=== PATIENT | male | born 2000 | race Caucasian/White ===

== ENCOUNTER 2021-04-09 21:37 | Emergency (ER) | payer OTHER, SELFPAY ==
[2021-04-09 21:39] VITALS: BP 136/85; PULSE 104; RESP 18; TEMP 36.9; O2SAT 99
--- NOTE | 2021-04-09 21:55 | PC.NURSE ---
Addendum entered by Rachel Carreno RN 04/09/21 22:00: Pt denies actively vomiting. when asked to clarify diarrhea, pt denies liquid stool. Original Note: Pt ambulatory to ED 10 c mother, with c/o upper abd pain with assoc. nausea. sinus surgery done 04/01. no longer taking rx zofran. denies nasal drainage/discharge. reports nausea worse with liquids like soup and better with solid foods. last ate approx. 1800. speech clear. skin nwd. resps even/nonlabored. does not appear to be in any distress. in gown. call light in reach. placed on monitor.
[2021-04-09 22:05] VITALS: BP 116/75; PULSE 94; RESP 14; O2SAT 100
[2021-04-09 22:05] LABS: Basophils Percent Auto 0.6 % (0.2-1.2); Eosinophils Absolute Auto 0.2 K/mm3 (0-0.3); Eosinophils Percent Auto 2.2 % (0-4.4); Hematocrit 49.1 % (42.0-52.0); Hemoglobin 17.6 g/dL (14.0-18.0); Immature Granulocyte Absolute 0.04 K/mm3 (0.00-0.031); Immature Granulocyte Percent A 0.6 % (0-0.5); Lymphocytes Absolute Auto 2.47 K/mm3 (0.9-3.2); Lymphocytes Percent Auto 35.9 % (18.3-44.2); Mean Corpuscular HGB Conc 35.8 g/dl (32-36); Mean Corpuscular Hemoglobin 31.5 pg (26-34); Mean Corpuscular Volume 87.8 fl (80-100); Mean Platelet Volume 9.3 fl (7.4-10.4); Monocytes Absolute Auto 0.7 K/mm3 (0.1-0.6); Monocytes Percent Auto 10.2 % (2.6-8.5); Neutrophils Absolute Auto 3.5 K/mm3 (1.3-6.7); Neutrophils Percent Auto 50.5 % (45.5-73.1); Platelet Count Result 260 k/mm3 (150-375); Red Blood Count 5.59 M/mm3 (4.6-6.20); Red Cell Distribution Width 11.8 % (11.5-14.5); White Blood Count 6.9 K/mm3 (4.5-10.0)
[2021-04-09 22:19] LABS: Alanine Aminotransferase 82 U/L (4-50); Albumin Level 4.8 g/dL (3.7-5.6); Alkaline Phosphatase 82 U/L (58-237); Anion Gap 11 mmol/L (8-16); Aspartate Amino Transferase 42 U/L (17-59); Bilirubin,Total 0.7 mg/dL (0.2-1.3); Blood Urea Nitrogen 19 mg/dL (8-21); Calcium 9.4 mg/dL (8.9-10.7); Carbon Dioxide 27 mmol/L (22-30); Chloride 101 mmol/L (98-107); Estimated CRCL calculation 108 ml/min; Estimated Glomerular Filt Rate > 60; Glucose 108 mg/dL (75-110); Lipase 43 U/L (23-300); Potassium 3.7 mmol/L (3.4-5.0); Sodium 139 mmol/L (134-143)
[2021-04-09] MEDS: ONDANSETRON INJ 4 MG/2 ML VIAL IV PUSH (22:37)
[2021-04-09] MEDS: BELLADONNA ALK/PHENOB ELIX 10 ML, MAG HYDROX/ALUMINUM HYD/SIMETH 30 ML, LIDOCAINE HCL 2... PO (22:58)
--- NOTE | 2021-04-09 23:27 | ED.ABDPAIN ---
HPI - Abdominal Pain General Chief Complaint: Abdominal Pain Stated Complaint: stomach problems Time Seen by Provider: 04/09/21 21:48 History of Present Illness HPI narrative: Patient is a 20-year-old male who presents ER with epigastric pain and nausea. Referred here from urgent care after having a negative UA. Reports urine has been darker than typical. Reports recently had a sinus surgery and has been having a lot of mucus drainage that may be causing his symptoms to be worsened. No fevers or chills or sweats. No chest pain or chest pressure. Patient is nonradiating cannot be characterize other than uncomfortable. No reports of heartburn. Related Data Allergies Allergy/AdvReac Type Severity Reaction Status Date / Time hydrocodone Allergy Hives Verified 04/09/21 21:43 Review of Systems Review of Systems: All systems reviewed & are unremarkable except as noted in HPI and below Constitutional: Constitutional: Denies chills, Denies fever(s) and Denies weakness ENT: Denies nasal congestion and Denies sore throat Cardiovascular: Cardiovascular: Denies chest pain and Denies radiating jaw, neck or arm pain Gastrointestinal: Gastrointestinal: Reports abdominal pain, Denies constipation, Denies diarrhea, Reports nausea and Denies vomiting PMFSH Past Medical History Medical History (Updated 04/09/21 @ 23:32 by Shiva Piña MD) Healthy adult male Surgical History Surgical History (Updated 04/09/21 @ 23:30 by Shiva Piña MD) H/O sinus surgery Social History Social History (Updated 04/09/21 @ 23:30 by Shiva Piña MD) Smoking status: Never smoker Gender identity (if verbalized by the patient): Male Exam Narrative: Exam Narrative: GENERAL: Well-appearing, well-nourished, and in no acute distress. HEAD: Normocephalic, atraumatic. EYES: PERRL and EOMI. ENT: Mucous membranes moist. CHEST: Clear to auscultation. No respiratory distress. HEART: Regular rate and rhythm. Normal peripheral pulses. ABDOMEN: Soft, nontender, nondistended. EXTREMITIES: Normal range of motion. No edema.. NEURO: Alert and oriented x3. PSYCH: Normal mood and affect. Course Course Emergency Course: Unremarkable evaluation. Symptoms improved with Zofran and GI cocktail. Patient feels Zofran likely help more. Discharge home. Vital Signs Vital signs: Vital Signs Temperature 98.5 F 04/09/21 21:39 Pulse Rate 104 H 04/09/21 21:39 Respiratory Rate 18 04/09/21 21:39 Blood Pressure 136/85 04/09/21 21:39 Pulse Oximetry 99 04/09/21 21:39 Temperature 98.5 F 04/09/21 21:39 Pulse Rate 94 04/09/21 22:05 Respiratory Rate 14 04/09/21 22:05 Blood Pressure 116/75 04/09/21 22:05 Pulse Oximetry 100 04/09/21 22:05 MDM - Abdominal Pain Lab Data Result diagrams: 04/09/21 21:59 04/09/21 21:59 Labs: Lab Results 04/09/21 04/09/21 Range/Units 21:59 21:59 WBC 6.9 (4.5-10.0) K/mm3 RBC 5.59 (4.6-6.20) M/mm3 Hgb 17.6 (14.0-18.0) g/dL Hct 49.1 (42.0-52.0) % MCV 87.8 (80-100) fl MCH 31.5 (26-34) pg MCHC 35.8 (32-36) g/dl RDW 11.8 (11.5-14.5) % Plt Count 260 (150-375) k/mm3 MPV 9.3 (7.4-10.4) fl Immature Gran % (Auto) 0.6 H (0-0.5) % Neut % (Auto) 50.5 (45.5-73.1) % Lymph % (Auto) 35.9 (18.3-44.2) % Stafford % (Auto) 10.2 H (2.6-8.5) % Eos % (Auto) 2.2 (0-4.4) % Baso % (Auto) 0.6 (0.2-1.2) % Lymph # (Auto) 2.47 (0.9-3.2) K/mm3 Stafford # (Auto) 0.7 H (0.1-0.6) K/mm3 Eos # (Auto) 0.2 (0-0.3) K/mm3 Baso # (Auto) 0.0 (0.0-0.1) K/mm3 Abs Immat Gran (auto) 0.04 H (0.00-0.031) K/mm3 Absolute Neuts (auto) 3.5 (1.3-6.7) K/mm3 Absolute Nucleated RBC 0.0 (0.0-0.012) K/mm3 Nucleated RBC % 0.0 (0.0-0.2) % Sodium 139 (134-143) mmol/L Potassium 3.7 (3.4-5.0) mmol/L Chloride 101 (98-107) mmol/L Carbon Dioxide 27 (22-30) mmol/L Anion Gap 11 (8-16) mmol/L BUN 19
== END 2021-04-09 23:58 | disposition home or self-care (01) ==
PROVIDERS: Emergency Medicine; Emergency Provider Emergency Medicine; PCP Pediatrics
DX: R10.13 Epigastric pain (principal)
CPT/HCPCS: 36415; 80053; 83690; 85025; 96374; 99284; A9270; J2405

== ENCOUNTER 2021-09-17 20:31 | Emergency (ER) | payer OTHER, SELFPAY ==
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
[2021-09-17 20:42] VITALS: BP 153/103; PULSE 93; RESP 17; TEMP 36.6; O2SAT 100
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
[2021-09-17] MEDS: CYCLOBENZAPRINE HCL 10 MG TABLET PO (22:37)
[2021-09-17] MEDS: IBUPROFEN 600 MG TABLET PO (22:37)
[2021-09-17 23:11] VITALS: PULSE 64; RESP 16; O2SAT 99
== END 2021-09-17 23:13 | disposition home or self-care (01) ==
PROVIDERS: Emergency Provider Emergency Medicine; PCP Pediatrics
DX: S70.12XA Contusion of left thigh, initial encounter (principal); S50.312A Abrasion of left elbow, initial encounter; M25.512 Pain in left shoulder; V29.88XA Motorcycle rider (driver) (passenger) injured in other specified transport accidents, initial encounter; Y92.481 Parking lot as the place of occurrence of the external cause
CPT/HCPCS: 71046; 73030; 73080; 99284; A4565; A9270

== ENCOUNTER 2022-01-12 15:41 | Emergency (ER) | payer OTHER, SELFPAY ==
[2022-01-12 15:46] VITALS: BP 150/92; PULSE 98; RESP 16; TEMP 36.9; O2SAT 100
--- NOTE | 2022-01-12 15:49 | ED.SKABFB ---
HPI - Skin/Abscess/Foreign Bdy General Chief complaint: Skin/Abscess/Foreign Body Stated complaint: itchy right 2nd/3rd toe Time Seen by Provider: 01/12/22 15:52 Source: patient, RN notes reviewed and old records reviewed Mode of arrival: ambulatory Limitations: no limitations History of Present Illness HPI narrative: 21-year-old male presents to the [facility] with complaints of redness to the fifth toe right foot and itching of the fourth and fifth toes. Started a couple of days ago, had been using a foot spray which made it feel worse. Redness and warmth noted to the dorsal aspect of the fifth toe, very dry skin surrounding toenail. Full range of motion. Denies pain but states it is very itchy. Related Data Allergies Allergy/AdvReac Type Severity Reaction Status Date / Time hydrocodone Allergy Hives Verified 01/12/22 15:50 Review of Systems Review of Systems: All systems reviewed & are unremarkable except as noted in HPI and below Constitutional: Constitutional: Reports no additional constitutional complaints, Denies chills, Denies fever(s), Denies headache(s) and Denies weakness Eyes: Eyes: Reports no additional eye complaints and Denies change in vision ENT: Reports system reviewed and no additional complaints, except as documented, Denies dysphagia, Denies dizziness, Denies headache(s), Denies nasal congestion and Denies sore throat Cardiovascular: Cardiovascular: Reports no additional cardiovascular complaints, Denies chest pain, Denies syncope and Denies dyspnea Respiratory: Respiratory: Reports no additional respiratory complaints, Denies chest congestion, Denies cough, Denies dyspnea and Denies wheezing Gastrointestinal: Gastrointestinal: Denies dysphagia Musculoskeletal: Musculoskeletal: Reports no additional musculoskeletal complaints and Denies numbness Integumentary/Breasts: Skin/Breast: Reports as per HPI, Reports pruritus, Reports erythema and Reports rash Neurologic: Reports system reviewed and no additional complaints, except as documented, Denies dizziness, Denies syncope, Denies headache(s), Denies focal weakness, Denies numbness and Denies weakness Psychiatric: Psychiatric: Reports no additional psychiatric complaints Allergic/Immunologic: Allergic/Immunologic: Reports no additional allergic/immunologic complaints and Denies wheezing PMFSH Past Medical History Medical History (Updated 01/13/22 @ 00:00 by Caridad Deng) Healthy adult male Surgical History Surgical History H/O sinus surgery Social History Social History Smoking status: Never smoker Gender identity (if verbalized by the patient): Male Comments At the time of my signature, I reviewed and agree with the nursing past medical, surgical, social, and family history. There is no relevant family history pertinent to the patient complaint. Exam Const: General: healthy appearing, no acute distress and alert Nutritional Appearance: well nourished Orientation/consciousness: patient oriented x3 Limitations: no limitations HENMT: Head: normal to inspection Ears: external ears normal Eyes: Pupils: Equal, round and reactive pupils present Neck: Neck: normal visual inspection, no lymphadenopathy and no meningeal signs Chest: Chest palpation & inspection: normal inspection of the chest Resp: Effort & Inspection: normal respiratory effort Auscultation: clear to auscultation bilaterally Cardio: Rate: regular rate Rhythm: regular rhythm Back/Spine/Pelvis: Back: no CVA tenderness Skin: General skin exam: normal color Wounds: no wounds Other: Redness, swelling and increased warmth noted to the right dorsal aspect fifth toe. Small lesion noted, callus to the mid dorsal fourth toe. Neuro: General: patient oriented x3, moves all extremities, no meningeal signs and no focal motor deficits Cranial nerves: Yes isauro Sanchez
== END 2022-01-12 16:15 | disposition home or self-care (01) ==
PROVIDERS: Emergency Provider Nurse Practitioner
DX: L03.031 Cellulitis of right toe (principal); L84 Corns and callosities; B35.3 Tinea pedis
CPT/HCPCS: 99213; G0463

== ENCOUNTER 2022-01-20 10:43 | Emergency (ER) | payer OTHER, SELFPAY ==
[2022-01-20 10:51] VITALS: BP 163/91; PULSE 64; RESP 16; TEMP 35.9; O2SAT 100
--- NOTE | 2022-01-20 11:09 | ED.SKABFB ---
HPI - Skin/Abscess/Foreign Bdy General Chief complaint: Skin/Abscess/Foreign Body Stated complaint: Athletes foot Time Seen by Provider: 01/20/22 10:50 Source: patient Limitations: no limitations History of Present Illness HPI narrative: 21-year-old male presents with complaint of bumps to his hands that are itchy. States that they started a few days ago. Had mentioned at his last visit here but was more focused on his feet itching. Patient states he was told that he has athlete's foot. Has been using prescribed antifungal with no relief. He also has similar bumps to his toes, he will and feels that they are spreading. He does not have a primary care physician to follow-up with. All systems reviewed and negative except as noted above. Related Data Allergies Allergy/AdvReac Type Severity Reaction Status Date / Time hydrocodone Allergy Hives Verified 01/12/22 15:50 Review of Systems Review of Systems: CONSTITUTIONAL: Denies fever, chills, or sweats. EYES: Denies visual changes, redness, or discharge. ENT: Denies rhinorrhea, congestion, sore throat, or otalgia. CARDIOVASCULAR: Denies chest pain, palpitations, or edema. RESPIRATORY: Denies cough or dyspnea. GASTROINTESTINAL: Denies abdominal pain, nausea, vomiting, or diarrhea. GENITOURINARY: Denies dysuria or hematuria. SKIN: Reports rash and itching to hands and feet. MUSCULOSKELETAL: Denies back pain, joint pain, or myalgia. NEUROLOGIC: Denies headache, numbness, or weakness. PSYCHIATRIC: Denies anxiety or depression. All other systems reviewed are negative, except as documented in HPI. PMFSH Past Medical History Medical History (Updated 01/20/22 @ 11:07 by Paz Gardner NP) Healthy adult male Surgical History Surgical History H/O sinus surgery Social History Social History Smoking status: Never smoker Gender identity (if verbalized by the patient): Male Comments At time of signature, agree with nursing past medical, surgical, social and family history. There is no relevant family history pertinent to the presenting complaint. Exam Narrative: GENERAL: This is a well-nourished, well-developed patient, in no apparent distress. HEAD: normocephalic, atraumatic. EYES: PERRL. Sclera clear/white. Vision is grossly intact. EARS: External ears normal NOSE: External nose normal NECK: Neck supple, non-tender without lymphadenopathy, masses or thyromegaly. CARDIOVASCULAR: Regular rate and rhythm without murmurs, gallops, or rubs. RESPIRATORY: Clear to auscultation. Breath sounds equal bilaterally. No wheezes, rales, or rhonchi. SKIN: warm, Dry, intact, good texture and turgor. Erythematous vesicles to lateral aspects of fingers and toes with some vesicles to heels. NEURO: awake, alert, and oriented to person, place and time. There were no obvious focal neurologic abnormalities. EXTREMITIES: Normal range of motion to all extremities. Course Course Level of Care: [facility] [place] Visit Vital Signs Vital signs: Vital Signs Temperature 35.9 C L 01/20/22 10:51 Pulse Rate 64 01/20/22 10:51 Respiratory Rate 16 01/20/22 10:51 Blood Pressure 163/91 H 01/20/22 10:51 Pulse Oximetry 100 01/20/22 10:51 Temperature 35.9 C L 01/20/22 10:51 Pulse Rate 64 01/20/22 10:51 Respiratory Rate 16 01/20/22 10:51 Blood Pressure 163/91 H 01/20/22 10:51 Pulse Oximetry 100 01/20/22 10:51 Reviewed MDM - Skin/Abscess/Foreign Bdy MDM Narrative Medical decision making narrative: Prescribe steroids to treat dyshidrotic eczema to hands and feet. Patient was given antifungal cream to treat athlete's foot at last visit to [facility]. There are no findings suggestive of athlete's foot but recommend patient continue antifungal for at least 2 weeks. Was referred to a sound effects manager for follow-up. Patient is aware of diagnosis, understands and
== END 2022-01-20 11:10 | disposition home or self-care (01) ==
PROVIDERS: Emergency Provider Nurse Practitioner Family
DX: L30.1 Dyshidrosis [pompholyx] (principal)
CPT/HCPCS: 99213; G0463